=== PATIENT | male | born 1955 | race Caucasian/White ===

== ENCOUNTER 2018-02-06 02:02 | Emergency (ER) | payer OTHER ==
[~2018-02-06] VITALS: Ht 177.8 cm; Wt 81.3 kg
[2018-02-06 02:49] LABS: ALBUMIN 4.3 g/dL (3.2-4.8); CHLORIDE 102 mEq/L (99-109); POTASSIUM 4.6 mEq/L (3.7-5.4); SODIUM 137 mEq/L (136-147)
[2018-02-06 02:52] LABS: GLUCOSE 344 mg/dL (70-99); TOTAL PROTEIN 7.6 g/dL (6.4-8.3)
[2018-02-06 02:53] LABS: TOTAL BILIRUBIN 0.8 mg/dL (0.0-1.0)
[2018-02-06 02:54] LABS: HEMATOCRIT 52.2 % (38.0-50.0); HEMOGLOBIN 18.5 G/DL (12.5-16.6); MCH 30.2 PG (29.0-34.0); MCHC 35.4 G/DL (30.0-36.0); MCV 85.2 FL (86-99); PLATELET COUNT 274 K/uL (156-360); RBC DIS.WIDTH-CV 13.1 % (11.8-14.6); RBC DIS.WIDTH-SD 40.7 % (39-53); RED BLOOD COUNT 6.13 M/uL (4.00-5.50); WHITE BLOOD COUNT 13.5 K/uL (4.1-10.2)
[2018-02-06 02:55] LABS: ALKALINE PHOSPHATASE 82 IU/L (3-129); CREATININE 1.1 mg/dL (0.6-1.3)
[2018-02-06 02:56] LABS: UREA NITROGEN (BUN) 17 mg/dL (9-23)
[2018-02-06 02:57] LABS: AST (GOT) 13 IU/L (2-34); GFR ESTIMATE (CALCULATED) > 59 mL/min/ (58.99-99999)
[2018-02-06 02:58] LABS: ALT (GPT) 13 IU/L (3-49)
[2018-02-06 06:26] LABS: APPEARANCE SL.HAZY ((CLEAR)); BILIRUBIN NEGATIVE; BLOOD LARGE; COLOR YELLOW ((YELLOW)); GLUCOSE (STRIP) >=500; KETONES 5; LEUKOCYTES SMALL; NITRITE NEGATIVE; PROTEIN (STRIP) 30; SPECIFIC GRAVITY 1.032 (1.000-1.030); UROBILINOGEN 0.2 MG/DL (0.2-1.0)
[2018-02-06 06:39] LABS: BACTERIA 1+ /HPF; EPITHELIAL CELLS NONE SEEN /HPF; MUCUS TRACE /LPF; RED BLOOD CELLS TNTC /HPF (0-5); UCUL ADDED? YES; WHITE BLOOD CELLS 20-30 /HPF (0-5)
[2018-02-06 09:13] VITALS: BP 120/64
[2018-02-06] MEDS ORDERED: ADVIL200 MG PO (12:57)
[2018-02-06] MEDS ORDERED: ANTI-DIARRHEAL PO (12:58)
[2018-02-06] MEDS ORDERED: SLEEP AID PO (12:59)
[2018-02-07] MEDS ORDERED: GLIPIZIDE5 MG PO (11:00)
[2018-02-07] MEDS ORDERED: CEFTIN500 MG PO (11:00)
== END 2018-02-06 09:13 | disposition left against medical advice (07) ==
LOC: EME 02:02
DX: N13.2 Hydronephrosis with renal and ureteral calculous obstruction (principal); R00.0 Tachycardia, unspecified; E11.9 Type 2 diabetes mellitus without complications; Z87.442 Personal history of urinary calculi; F17.200 Nicotine dependence, unspecified, uncomplicated
CPT/HCPCS: 74019; 74177; 80053; 81003; 85027; 87086; 93005; 99281; 99284; J0696; J7030

== ENCOUNTER 2018-02-06 11:28 | Inpatient (IN) | payer OTHER ==
[~2018-02-06] VITALS: Ht 180.3 cm; Wt 80.1 kg
[2018-02-06 12:17] LABS: HEMATOCRIT 48.4 % (38.0-50.0); HEMOGLOBIN 17.4 G/DL (12.5-16.6); MCH 30.4 PG (29.0-34.0); MCV 84.5 FL (86-99); RBC DIS.WIDTH-CV 13.1 % (11.8-14.6); RED BLOOD COUNT 5.73 M/uL (4.00-5.50); WHITE BLOOD COUNT 10.4 K/uL (4.1-10.2)
[2018-02-06 12:43] LABS: INTER. NORMALIZED RATIO 1.1
[2018-02-06 12:45] LABS: D-DIMER ELISA < 150.00 ng/mLDDU (<230)
[2018-02-06 12:46] LABS: CHLORIDE 105 mEq/L (99-109); MAGNESIUM 1.8 mg/dL (1.3-2.7); SODIUM 136 mEq/L (136-147)
[2018-02-06 12:48] LABS: GLUCOSE 331 mg/dL (70-99)
[2018-02-06 12:51] LABS: CREATININE 0.9 mg/dL (0.6-1.3); GFR ESTIMATE (CALCULATED) > 59 mL/min/ (58.99-99999)
[2018-02-06 12:52] LABS: UREA NITROGEN (BUN) 15 mg/dL (9-23)
[2018-02-06 12:56] LABS: BASOPHIL (%) 0.6 % (0-1); BASOPHIL COUNT 0.1 K/uL (0-0.1); EOSINOPHIL COUNT 0.1 K/uL (0-0.3); IMMATURE GRANULOCYTE (%) 0.6 % (0.0-0.7); LYMPHOCYTE (%) 16.8 % (15-42); LYMPHOCYTE COUNT 1.7 K/uL (1.0-2.8); MONOCYTE (%) 8.8 % (3-12); MONOCYTE COUNT 0.9 K/uL (0-0.8); NEUTROPHIL (%) 72.2 % (45-76); NEUTROPHIL COUNT 7.5 K/uL (1.8-6.4)
[2018-02-06] MEDS ORDERED: ADVIL200 MG PO (12:57)
[2018-02-06] MEDS ORDERED: ANTI-DIARRHEAL PO (12:58)
[2018-02-06] MEDS ORDERED: SLEEP AID PO (12:59)
[2018-02-06 13:00] LABS: TROP-I INTERPRETATION NEGATIVE; TROPONIN-I < 0.01 ng/mL (0.0-0.30)
[2018-02-06 14:06] LABS: APPEARANCE SL.HAZY ((CLEAR)); BILIRUBIN NEGATIVE; BLOOD LARGE; COLOR YELLOW ((YELLOW)); GLUCOSE (STRIP) >=500; KETONES 5; LEUKOCYTES SMALL; NITRITE NEGATIVE; PROTEIN (STRIP) 30; SPECIFIC GRAVITY 1.028 (1.000-1.030); UROBILINOGEN 0.2 MG/DL (0.2-1.0)
[2018-02-06 14:24] LABS: BACTERIA 1+ /HPF; EPITHELIAL CELLS RARE /HPF; MUCUS NONE SEEN /LPF; RED BLOOD CELLS TNTC /HPF (0-5)
[2018-02-06 14:35] LABS: PLAT.SUFFICIENCY ADEQUATE
[2018-02-06 14:38] LABS: PLATELET COUNT 184 K/uL (156-360)
[2018-02-06 15:34] LABS: THYROTROPIN (TSH) 0.31 MIU/L (0.4-5.5)
[2018-02-06 16:00] VITALS: BP 123/86
[2018-02-06 19:30] VITALS: BP 129/78
[2018-02-06 23:21] VITALS: BP 126/74
[2018-02-07 04:06] VITALS: BP 121/74
[2018-02-07 06:20] LABS: HEMATOCRIT 45.5 % (38.0-50.0); HEMOGLOBIN 15.5 G/DL (12.5-16.6); MCH 29.1 PG (29.0-34.0); MCHC 34.1 G/DL (30.0-36.0); MCV 85.5 FL (86-99); RBC DIS.WIDTH-CV 13.1 % (11.8-14.6); RBC DIS.WIDTH-SD 40.9 % (39-53); RED BLOOD COUNT 5.32 M/uL (4.00-5.50); WHITE BLOOD COUNT 8.7 K/uL (4.1-10.2)
[2018-02-07 06:26] LABS: PLATELET COUNT 248 K/uL (156-360)
[2018-02-07 06:47] LABS: CHLORIDE 110 MEQ/L (99-109); CREATININE 0.8 MG/DL (0.6-1.3); GFR ESTIMATE (CALCULATED) > 59 mL/min/ (58.99-99999); POTASSIUM 3.8 MEQ/L (3.7-5.4); SODIUM 140 MEQ/L (136-147); UREA NITROGEN (BUN) 14 mg/dL (9-23)
[2018-02-07 06:48] LABS: GLUCOSE 90 mg/dL (70-99)
[2018-02-07 07:57] VITALS: BP 139/91
[2018-02-07] MEDS ORDERED: GLIPIZIDE5 MG PO (11:00)
[2018-02-07] MEDS ORDERED: CEFTIN500 MG PO (11:00)
[2018-02-07 11:46] VITALS: BP 127/81
[2018-02-08 10:04] LABS: HEMOGLOBIN A1c (GLYCOHEMOGLOB) 11.3 % (Below 5.7)
== END 2018-02-07 14:06 | disposition home or self-care (01) | DRG 690 ==
LOC: EME 11:28 → EDOF 13:08 → ENRESERV 13:17 → CANRESERV 13:17 → EDOF 13:20 → ENRESERV 13:42 → 5SOUTH 15:32
PROVIDERS: Emergency Medicine; Internal Medicine
DX: N13.6 Pyonephrosis (principal); E11.9 Type 2 diabetes mellitus without complications; F17.210 Nicotine dependence, cigarettes, uncomplicated; I10 Essential (primary) hypertension; Z87.442 Personal history of urinary calculi; K59.00 Constipation, unspecified; R00.0 Tachycardia, unspecified; M40.204 Unspecified kyphosis, thoracic region
CPT/HCPCS: 71045; 80048; 81003; 82948; 83036; 83735; 84439; 84443; 84484; 85025; 85027; 85379; 85610; 85730; 87040; 87086; 93005; 99281; 99284; J0696; J7030; J7040